=== PATIENT | female | born 1965 | race Caucasian/White ===

== ENCOUNTER 2024-03-20 14:09 | Emergency (ER) | payer OTHER ==
[2024-03-20] MEDS ORDERED: FLEET ENEMA ADULT PR ONE (15:30)
[2024-03-20 16:45] LABS: Absolute Basophils 0.1 K/uL (0-0.5); Absolute Eosinophils 0.1 K/uL (0-0.5); Absolute Lymphocytes (CBC) 2.1 K/uL (0.7-4.9); Absolute Monocytes 0.4 K/uL (0.1-1.3); Absolute Neutrophil 5.2 K/uL (1.8-8.0); Basophils % 0.9 % (0-1.3); Eosinophils % 1.5 % (0-4.4); Hematocrit 46.3 % (36.0-45.0); Hemoglobin 15.6 g/dL (12.0-15.0); Lymphocytes % 26.6 % (15.3-44.8); MCH 31.3 pg (27.0-35.0); MCHC 33.6 g/dL (32.0-36.0); MCV 93.2 fL (80-100); MPV 8.6 fL (7.6-11.3); Monocytes % 5.6 % (3.3-12.3); Neutrophils % 65.4 % (41.7-73.7); Platelets 204 thou/uL (152-406); RBC Red Blood Cell Count 4.97 M/uL (3.86-4.86); Red Cell Distribution Width 14.3 % (12.1-15.2)
[2024-03-20 18:14] LABS: Albumin 3.8 g/dL (3.4-5.0); Albumin/Globulin Ratio 1.3 (1.1-1.8); Anion Gap 6.7 mEq/L (5.0-15.0); Bilirubin Total 0.6 mg/dL (0.2-1.0); Potassium 3.7 mEq/L (3.5-5.1); Protein, Total 6.8 g/dL (6.4-8.2)
--- NOTE | 2024-03-20 19:03 | RAD REPORT ---
EXAMINATION: CT ABDOMEN AND PELVIS WITH CONTRAST CLINICAL INDICATION: Abdominal pain TECHNIQUE: CT abdomen and pelvis was performed, after the administration of 100 cc Isovue-300.. Sagit stuart and coronal reconstructions were obtained. One or more of the following dose reduction techniques were used: Automated exposure control, adjustment of the mA and/or kV according to patien t size, and/or iterative reconstruction. Unless otherwise specified, incidental findings do not require dedicated imaging follow-up. [id number]. Oral contrast was not given which limits evaluation of b owel and appendix. COMPARISON: none FINDINGS: Mild fatty liver. Cholecystectomy spleen, pancreas, left adrenal and kidneys appear unremarkable 1.2 cm right adrenal nodule Hounsfield unit 33. Normal appendix There is no evidence of diverticulitis. Moderate amount of stool within the colon No adnexal mass Mild posterior subluxation L5 on S1 with disc space narrowing and osteophytes. Small umbilical hernia : IMPRESSION: Moderate amount of stool within the colon 1.2 cm right adrenal nodule probably an adenoma.Recommend 1 year follow up adrenal washout CT. If sta ble ? 1 year, no further follow-up imaging.
--- NOTE | 2024-03-20 19:26 | ER ---
Nurse's Notes [facility] Name: Regi Carbone Age: 58 yrs Sex: Female : 1965 Arrival Date: 03/20/2024 Time: 14:09 Bed 25 Private MD: Diagnosis: Constipation, unspecified Presentation: 03/20 14:46 Chief complaint: Patient states: no BM X 3 weeks , not on pain meds , feels pressure in iw her rectum and cramping. Coronavirus screen: At this time, the client does not indicate any symptoms associated with coronavirus-19. Ebola Screen: No symptoms or risks identified at this time. Initial Sepsis Screen: Does the patient meet any 2 criteria? No. Patient's initial sepsis screen is negative. Does the patient have a suspected source of infection? No. Patient's initial sepsis screen is negative. Risk Assessment: Do you want to hurt yourself or someone else? Patient reports no desire to harm self or others. Onset of symptoms was February 28, 2024. 14:46 Method Of Arrival: Ambulatory iw 14:46 Acuity: ROXANNE 3 iw Historical: - Allergies: 14:48 No Known Allergies; iw - Home Meds: 14:50 semaglutide 0.25 mg or 0.5 mg (2 mg/3 mL) subcutaneous Pen Injector 0.5 mg every week iw [Active]; 14:51 solifenacin 10 mg oral tablet daily [Active]; rosuvastatin 20 mg oral tablet daily iw [Active]; quetiapine 100 mg oral tablet daily [Active]; omeprazole 40 mg Oral capsule,delayed release (e.c.) daily [Active]; - PMHx: 14:48 Hypercholesterolemia; iw - PSHx: 14:48 Cholecystectomy; hysterectomy; ankle; breast; iw - Immunization history:: Adult Immunizations not up to date. - Infectious Disease History:: Denies. - Social history:: Smoking status: Patient reports the use of cigarette tobacco products, smokes one pack cigarettes per day. Screenin:00 [facility] ED Fall Risk Assessment (Adult) History of falling in the last 3 months, jb4 including since admission No falls in past 3 months (0 pts) Confusion or Disorientation No (0 pts) Intoxicated or Sedated No (0 pts) Impaired Gait No (0 pts) Mobility Assist Device Used No (0 pt) Altered Elimination No (0 pt) Score/Fall Risk Level 0 - 2 = Low Risk Oriented to surroundings, Maintained a safe environment. Abuse screen: Denies threats or abuse. Nutritional screening: No deficits noted. Tuberculosis screening: No symptoms or risk factors identified. Assessment: 15:15 General: Appears in no apparent distress. comfortable, Behavior is calm, cooperative, jb4 appropriate for age. Pain: Denies pain. Neuro: Level of Consciousness is awake, alert, obeys commands, Oriented to person, place, time, situation. Cardiovascular: Patient's skin is warm and dry. Respiratory: Airway is patent Respiratory effort is even, unlabored, Respiratory pattern is regular, symmetrical. GI: Reports constipation. : No signs and/or symptoms were reported regarding the genitourinary system. EENT: No signs and/or symptoms were reported regarding the EENT system. Derm: Skin is intact, Skin is pink, warm \T\ dry. Musculoskeletal: Circulation, motion, and sensation intact. Range of motion: intact in all extremities. 16:00 Reassessment: Patient appears in no apparent distress at this time. Patient and/or jb4 family updated on plan of care and expected duration. Pain level reassessed. Patient is alert, oriented x 3, equal unlabored respirations, skin warm/dry/pink. 17:00 Reassessment: Patient appears in no apparent distress at this time. Patient and/or jb4 family updated on plan of care and expected duration. Pain level reassessed. Patient is alert, oriented x 3, equal unlabored respirations, skin warm/dry/pink. 18:00 Reassessment: Patient appears in no apparent distress at this time. Patient and/or jb4 family updated on plan of care and expected duration. Pain level reassessed. Patient is alert, oriented x 3, equal unlabored respirations, skin warm/dry/pink. 19:00 Reassessment: Patient appears in no apparent distress at this time. Patient and/or jb4 family updated on plan of care and expected duration. Pain level reassessed. Patient is alert, oriented x 3, equal unlabored respirations, skin warm/dry/pink. Vital Signs: 14:46 BP 113 / 91; Pulse 87; Resp 16; Temp 97; Pulse Ox 100% on R/A; Weight 109.32 kg; Height iw 5 ft. 7 in. ; Pain 9/10; 14:46 Body Mass Index 37.75 (109.32 kg, 170.18 cm) iw 14:46 Pain Scale: Adult iw ED Course: 14:12 Patient arrived in ED. mg5 14:18 Ruddy Wood DO is Attending Physician. ms3 14:48 Triage completed. iw 14:49 Arm band placed on. iw 18:40 CT Abd/Pelvis - IV Contrast Only In Process Unspecified. EDMS 18:47 Attending Physician role handed off by Ruddy Wood DO ms3 18:47 Jet Castaneda MD is Attending Physician. ms3 19:00 Patient has correct armband on for positive identification. Bed in low position. Call jb4 light in reach. Side rails up X 1. Provided Education on: discharge instructions.. 19:00 No provider procedures requiring assistance completed. IV discontinued, intact, jb4 bleeding controlled, No redness/swelling at site. Pressure dressing applied. Administered Medications: 15:34 Drug: Fleet Enema MI 133 ml MI once; may repeat once {Note: Pt wanted to administer jb4 medication themselves.} Route: MI; 19:37 Follow up: Response: No adverse reaction jb4 19:37 Not Given (Patient Refused): soap suds 1 application MI once jb4 19:41 Drug: Magnesium Citrate PO Liquid 300 ml PO once Route: PO; jb4 19:41 Follow up: Response: Medication administered at discharge. jb4 Medication: 19:00 VIS not applicable for this client. jb4 Outcome: 19:25 Discharge ordered by . rn 19:44 Discharged to home ambulatory, with family, jb4 19:44 Condition: stable 19:44 Discharge instructions given to patient, Instructed on discharge instructions, follow up and referral plans. Demonstrated understanding of instructions, follow-up care, 19:44 Patient left the ED. jb4 Signatures: Dispatcher [employer] Pratibha Lozoya RN RN Jet Castaneda MD MD rn Bryson, James, RN RN jb4 Ruddy Wood DO DO ms3 Chantell Farrell mg5 Corrections: (The following items were deleted from the chart) 14:49 14:48 PSHx: berast; iw iw 19:44 19:00 Discharged to home ambulatory, with family, jb4 jb4 19:44 19:00 Condition: stable jb4 jb4 19:44 19:00 Discharge instructions given to patient, Instructed on discharge instructions, jb4 follow up and referral plans. Demonstrated understanding of instructions, follow-up care, jb4
--- NOTE | 2024-03-20 19:26 | EDPHYS ---
Physician Documentation [facility] Name: Regi Carbone Age: 58 yrs Sex: Female : 1965 Arrival Date: 03/20/2024 Time: 14:09 Bed 25 Private MD: ED Physician Jet Castaneda HPI: 03/20 17:25 This 58 yrs old Female presents to ER via Ambulatory with complaints of Constipation. ms3 17:25 58-year-old female with past medical history of hypertension, GERD presents to the [facility] emergency department for constipation. Patient states she has not had a bowel movement in 3 weeks. Patient has attempted fleets enemas and was unable to get water into her rectum. Patient states she is having diffuse abdominal pain that increased today.. Historical: - Allergies: 14:48 No Known Allergies; iw - Home Meds: 14:50 semaglutide 0.25 mg or 0.5 mg (2 mg/3 mL) subcutaneous Pen Injector 0.5 mg every week iw [Active]; 14:51 solifenacin 10 mg oral tablet daily [Active]; rosuvastatin 20 mg oral tablet daily iw [Active]; quetiapine 100 mg oral tablet daily [Active]; omeprazole 40 mg Oral capsule,delayed release (e.c.) daily [Active]; - PMHx: 14:48 Hypercholesterolemia; iw - PSHx: 14:48 Cholecystectomy; hysterectomy; ankle; breast; iw - Immunization history:: Adult Immunizations not up to date. - Infectious Disease History:: Denies. - Social history:: Smoking status: Patient reports the use of cigarette tobacco products, smokes one pack cigarettes per day. ROS: 17:25 Constitutional: Negative for fever, and chills. Cardiovascular: Negative for chest ms3 pain, and palpitations. Respiratory: Negative for shortness of breath, cough, wheezing, and pleuritic chest pain, 17:25 Abdomen/GI: Positive for abdominal pain, constipation, Exam: 17:25 Constitutional: This is a well developed, well nourished patient who is awake, alert, ms3 and in no acute distress. Neck: Trachea midline, no cervical lymphadenopathy. Supple, full range of motion without nuchal rigidity, or vertebral point tenderness. No Meningismus. Chest/axilla: Normal chest wall appearance and motion. Nontender with no deformity. Cardiovascular: Regular rate and rhythm with a normal S1 and S2. No gallops, murmurs, or rubs. Normal PMI, no JVD. No pulse deficits. Respiratory: Lungs have equal breath sounds bilaterally, clear to auscultation and percussion. No rales, rhonchi or wheezes noted. No increased work of breathing, no retractions or nasal flaring. Abdomen/GI: Soft, non-tender, with normal bowel sounds. No distension or tympany. No guarding or rebound. No evidence of tenderness throughout. Skin: Warm, dry with normal turgor. Normal color with no rashes, no lesions, and no evidence of cellulitis. MS/ Extremity: Pulses equal, no cyanosis. Neurovascular intact. Full, normal range of motion. Vital Signs: 14:46 BP 113 / 91; Pulse 87; Resp 16; Temp 97; Pulse Ox 100% on R/A; Weight 109.32 kg; Height iw 5 ft. 7 in. ; Pain 9/10; 14:46 Body Mass Index 37.75 (109.32 kg, 170.18 cm) iw 14:46 Pain Scale: Adult iw MDM: 15:38 Patient medically screened. ms3 17:25 Differential diagnosis: bowel obstruction, non-specific abd pain, Constipation. ms3 18:47 Transition of care: After a detail discussion of the patient's case, care is ms3 transferred to Jet Castaneda MD. 19:24 Data reviewed: vital signs, nurses notes, lab test result(s), radiologic studies, CT rn scan, and as a result, I will discharge patient. Counseling: I had a detailed discussion with the patient and/or guardian regarding the historical points, exam findings, and any diagnostic results supporting the discharge/admit diagnosis, lab results, radiology results, the need for outpatient follow up, to return to the emergency department if symptoms worsen or persist or if there are any questions or concerns that arise at home. Special discussion: I discussed with the patient/guardian in detail that at this point there is no indication for admission to the hospital. It is understood, however, that if the symptoms persist or worsen the patient needs to return immediately for re-evaluation. Based on the history and exam findings, there is no indication for further emergent testing or inpatient evaluation. I discussed with the patient/guardian the need to see the manager housekeeping for further evaluation of the symptoms. I discussed with the patient/guardian the need to see the primary care provider for further evaluation of the symptoms. ED course: Patient signed out to me by Dr. Wood. Plan was to follow-up CT and if no obstruction or acute etiology can discharge with bowel regimen. Offered magnesium citrate here, patient plans to take at home so that she is more comfortable. No evidence of obstruction or ileus at this time. Return precautions given and understood.. 03/20 16:10 Order name: CBC with Diff; Complete Time: 17:25 ms3 03/20 16:10 Order name: CMP; Complete Time: 18:47 ms3 03/20 16:10 Order name: Lipase; Complete Time: 18:47 tx3 03/20 16:10 Order name: CT Abd/Pelvis - IV Contrast Only; Complete Time: 19:11 ms3 03/20 16:10 Order name: IV Saline Lock; Complete Time: 16:44 ms3 03/20 16:10 Order name: Labs collected and sent; Complete Time: 16:44 ms3 03/20 16:49 Order name: Labs - recollect needed: recollect green top; Complete Time: 17:18 bd Administered Medications: 15:34 Drug: Fleet Enema VT 133 ml VT once; may repeat once {Note: Pt wanted to administer jb4 medication themselves.} Route: VT; 19:37 Follow up: Response: No adverse reaction jb4 19:37 Not Given (Patient Refused): soap suds 1 application VT once jb4 19:41 Drug: Magnesium Citrate PO Liquid 300 ml PO once Route: PO; jb4 19:41 Follow up: Response: Medication administered at discharge. jb4 Disposition Summary: 03/20/24 19:25 Discharge Ordered Notes: Location: Home rn Problem: new rn Symptoms: have improved rn Condition: Stable rn Diagnosis - Constipation, unspecified rn Followup: rn - With: Private Physician - When: As needed - Reason: Recheck today's complaints, Re-evaluation by your physician Discharge Instructions: - Discharge Summary Sheet rn - Constipation, Adult rn Forms: - Medication Reconciliation Form rn - Antibiotic rn assessment - Prescription Opioid Use rn - Patient Portal Instructions rn - Leadership Thank You Letter rn Signatures: Dispatcher [facility] Aleyda Mccord Irene, RN RN iw Nieto, Roman, MD MD rn Bryson, Tenzin, RN RN jb4 Ruddy Wood DO DO ms3 Corrections: (The following items were deleted from the chart) 14:49 14:48 PSHx: berast; iw iw 18: 16:11 COMPREHENSIVE METABOLIC PANEL+C.LAB.BRZ ordered. EDMS EDMS 18: 16:11 LIPASE+C.LAB.BRZ ordered. EDMS EDMS
[2024-03-20] MEDS ORDERED: MAGNESIUM CITRATE 300 ML BOT ONE (19:38)
[2024-03-20 20:21] VITALS: BP 113/91; TEMP 97; O2SAT 100
== END 2024-03-20 19:44 | disposition home or self-care (01) ==
LOC: ER 14:09
DX: K59.00 Constipation, unspecified (principal); E78.00 Pure hypercholesterolemia, unspecified
CPT/HCPCS: 85025; 83690; 80053; 74177; 99283; Q9967